=== PATIENT | male | born 1980 | race Hispanic/Latino ===

== ENCOUNTER 2017-02-26 23:18 | Emergency (ER) | payer SELFPAY ==
[~2017-02-26] VITALS: Ht 172.7 cm; Wt 76.4 kg
[~2017-02-26 23:18] MED LIST: WELLBUTRIN SR150 MG PO
[2017-02-27] MEDS ORDERED: XANAX2 MG PO ×2 (00:01→00:07)
[2017-02-27] MEDS ORDERED: METOPROL TAR25 MG PO (00:01)
[2017-02-27] MEDS ORDERED: BUSPAR5 MG PO ×2 (00:01→00:07)
[2017-02-27] MEDS ORDERED: WELLBUTRIN SR150 MG PO (00:07)
[2017-02-27 00:20] VITALS: BP 129/67
== END 2017-02-27 00:20 | disposition home or self-care (01) | DRG 880 ==
LOC: ED 23:18
DX: F41.9 Anxiety disorder, unspecified (principal); Z91.14 Patient's other noncompliance with medication regimen; I10 Essential (primary) hypertension; F32.9 Major depressive disorder, single episode, unspecified; F43.10 Post-traumatic stress disorder, unspecified; G89.29 Other chronic pain; M54.2 Cervicalgia; F17.210 Nicotine dependence, cigarettes, uncomplicated